=== PATIENT | male | born 1960 | race Caucasian/White ===

== ENCOUNTER 2017-08-15 13:26 | Emergency (ER) | payer SELFPAY ==
[2017-08-15] MEDS ORDERED: ASPIRIN (CHEWABLE) 81 MG TAB PO ONE (13:34)
[2017-08-15] MEDS ORDERED: NITROGLYCERIN 0.4 MG 25 EA TAB SL PRN (13:34)
[2017-08-15] MEDS ORDERED: TENECTEPLASE 50 MG VIAL IV ONE ×2 (13:35→13:43)
--- NOTE | 2017-08-15 13:45 | ED.PDOC ---
History of Present Illness - General Chief Complaint: Chest Pain/NC Stated Complaint: chest pain Time Seen by Provider: 08/15/17 13:39 Source: patient Exam Limitations: no limitations - History of Present Illness Initial Comments: Christophe Peña 57 y/o male stated that he vomited 2 x intially then had onset heavy stabbing chest pain s at about 0900 H today gradually got worse and constant decided to come to er.Had cold sweats,SOB. Timing/Duration: 4-6 hours Severity/Quality: severe, stabbing Location: central Chest Pain Radiation: no radiation Activities at Onset: none, other - watching tv Prior Chest Pain/Cardiac Workup: no prior chest pain Improving Factors: nothing Worsening Factors: nothing Nitro Today/Relief: 0.4 mg x 1, provided by ED Aspirin Treatment Today: 81 mg x 4 Associated Symptoms: nausea/vomiting Allergies/Adverse Reactions: Allergies NO KNOWN ALLERGY Allergy (Verified 08/15/17 13:34) Review of Systems - Review of Systems Constitutional: States: no symptoms reported EENTM: States: no symptoms reported Respiratory: States: no symptoms reported Cardiology: States: see HPI Gastrointestinal/Abdominal: States: see HPI, vomiting Genitourinary: States: no symptoms reported All other Systems: Reviewed and Negative, No Change from Baseline Past Medical History (General) - Patient Medical History Hx Seizures: No Hx Stroke: No Hx Asthma: No Hx Cardiac Disorders: No Surgical History: no surgical history - Social History Hx Tobacco Use: Yes - less than ppd Hx Chewing Tobacco Use: No Hx Alcohol Use: Yes - occasional Hx Substance Use: No Family Medical History - Family History Father Hx Cardiac Disease: Yes - parents Hx Family Cancer: Yes Physical Exam - Physical Exam General Appearance: Anxious, No apparent distress Eyes, Ears, Nose, Throat Exam: PERRL/EOMI, normal ENT inspection Neck: non-tender, full range of motion, supple Respiratory: chest non-tender, lungs clear, normal breath sounds, no respiratory distress Cardiovascular/Chest: normal peripheral pulses, regular rate, rhythm, no gallop , no murmur Peripheral Pulses: radial,right: 2+, radial,left: 2+ Gastrointestinal/Abdominal: non tender, soft, no organomegaly Extremity: normal range of motion, non-tender, no pedal edema, no calf tenderness Skin Exam: normal color, warm/dry Progress - Progress Progress: 08/15/17 13:54 Last Vital Signs Temp Pulse Resp BP Pulse Ox 95 08/15/17 13:52 08/15/17 13:55 Explained that he is having heart attack which was showing on his EKG and Need TNKase to dissolve the clot stated the possible side effects prior to administration including dying from the medication and agreed to have it given.Denies bleeding diathesis,any surgical procedure recently or cva-infatct/ hemorrhage. 08/15/17 14:28 Last Vital Signs Temp 97.9 F 08/15/17 13:26 Pulse 117 H 08/15/17 13:26 Resp 28 H 08/15/17 13:26 BP 147/88 08/15/17 13:26 Pulse Ox 95 08/15/17 13:52 08/15/17 14:33 - Results/Orders Results/Orders: Laboratory Tests 08/15/17 13:51 WBC 18.8 H RBC 5.35 Hgb 18.2 H Hct 52.2 H MCV 97.5 H MCH 34.0 H MCHC 34.8 RDW 12.6 Plt Count 328 MPV 8.5 Absolute Neuts (auto) 16.70 H Absolute Lymphs (auto) 0.80 L Absolute Monos (auto) 1.10 H Absolute Eos (auto) 0.00 Absolute Basos (auto) 0.10 Neutrophils % 89.1 H Lymphocytes % 4.0 L Monocytes % 6.1 Eosinophils % 0.1 L Basophils % 0.7 PT 12.4 INR 1.100 PTT (SP) 29.7 Sodium 133 L Potassium 4.0 Chloride 99 L Carbon Dioxide 17 L Anion Gap 21.0 H BUN 10 Creatinine 1.09 BUN/Creatinine Ratio 9.2 L Random Glucose 122 H Serum Osmolality 266.7 L Calcium 9.4 Magnesium 2.0 Creatine Kinase 73 CK-MB (CK-2) 6.4 H* CK-MB (CK-2) % 8.77 H Troponin I 0.09 H* - EKG/XRAY/CT EKG: ST elevation - anterior leads Comments: Heart [id number] XRAY: chest - increase interstitial markings,cardiomegaly Departure - Departure Clinical Impression: Acute myocardial infarction Qualifiers: Myocardial infarction ST status: ST elevation myocardial infarction Involved coronary artery: left main coronary artery Qualified Code(s): I21.01 - ST elevation (STEMI) myocardial infarction involving left main coronary artery Time of Disposition: 14:31 Disposition: Transfer to Hospital Condition: Fair Departure Forms: Patient Portal Self Enrollment Referrals: Romel Cardenas MD [Primary Care Provider] - 1-2 Weeks Transfer to Outside Facility - Transfer Information Accepting Facility: [facility] - D/W Dr. Mary Hayes Md
[2017-08-15 13:56] VITALS: TEMP 97.9
--- NOTE | 2017-08-15 14:00 | RAD ---
EXAM DESCRIPTION: Chest,1 View CLINICAL HISTORY: 57 years Male, chest pain COMPARISON: None. IMPRESSION: The heart is at the upper limits of normal in size, and there is mild central pulmonary vascular congestion. Coarsened increased bilateral interstitial markings, greatest in the perihilar regions bilaterally and in the right lung base. The findings may reflect interstitial scarring/fibrosis, CHF with interstitial edema, or an atypical infectious/inflammatory process. Short interval follow-up radiographs recommended. No large pleural effusion or pneumothorax. No acute osseous abnormality. Electronically signed by: John Jackson MD 08/15/2017 2:00 PM [facility]
[2017-08-15] MEDS ORDERED: NITROGLYCERIN/D5W IV 250 ML IVS ONE (14:03)
[2017-08-15] MEDS ORDERED: HEPARIN PREMIX 500 ML ONE (14:09)
[2017-08-15] MEDS ORDERED: HEPARIN PREMIX 25,000 UNITS in PREMIX BAG 1 BAG IVS SCH (14:15)
[2017-08-15] MEDS ORDERED: LABETALOL INJ 5 MG/ML VIAL IV PRN (14:20)
[2017-08-15] MEDS ORDERED: MORPHINE SULFATE INJ 10 MG/ML VIAL IV ONE ×2 (14:21→15:03)
[2017-08-15] MEDS ORDERED: NITROGLYCERIN/D5W IV 50,000 MCG in PREMIX BOTTLE 1 BOTTLE IVS SCH (14:30)
[2017-08-15] MEDS ORDERED: HEPARIN SODIUM (PORCINE) 5,000 U/ML VIAL IV ONE (14:53)
[2017-08-15 15:44] VITALS: BP 106/75
[2017-08-15 15:52] VITALS: O2SAT 91
== END 2017-08-15 15:35 | disposition short-term general hospital (02) ==
LOC: ER 13:26
DX: I21.01 ST elevation (STEMI) myocardial infarction involving left main coronary artery (principal); I51.7 Cardiomegaly; F17.200 Nicotine dependence, unspecified, uncomplicated
CPT/HCPCS: 36415; 71045; 80048; 82550; 82553; 84484; 85025; 85610; 85730; 93005; J1644; J2270; J3101